=== PATIENT | female | born 1975 | race Caucasian/White ===

== ENCOUNTER 2019-07-27 14:28 | Outpatient (CLI) | payer BC ==
--- NOTE | 2019-07-27 16:12 | MMO ---
Left Breast MAMMO Unilat Diag DDI LT+NADIR. CLINICAL HISTORY: Patient is 44 years old and is seen for diagnostic exam. The patient has no family history of breast cancer. The patient has no personal history of cancer. VIEWS: The views performed were: left craniocaudal with tomosynthesis; left mediolateral oblique with tomosynthesis; and left mediolateral with tomosynthesis. FILMS COMPARED: The present examination has been compared to prior imaging studies performed at [facility] on 02/24/2019 and 03/01/2019, and at [facility] on 07/27/2019. This study has been interpreted with the assistance of computer-aided detection. MAMMOGRAM FINDINGS: The breast is heterogeneously dense, which could obscure a lesion on mammography. There is a stable lobular mass measuring 27 millimeters with associated biopsy clip seen in the left breast at 8 o'clock. IMPRESSION: STABLE MASS IN THE LEFT BREAST IS PROBABLY BENIGN. FOLLOW-UP IN 6 MONTHS IS RECOMMENDED. THE RESULTS OF THIS EXAM WERE SENT TO THE PATIENT. ACR BI-RADS Category 3 - Probably benign finding - short interval follow-up suggested. [facility] will notify the patient of the need for additional imaging services. MAMMOGRAPHY NOTE: 1. A negative mammogram report should not delay a biopsy if a dominant of clinically suspicious mass is present. 2. Approximately 10% to 15% of breast cancers are not detected by mammography. 3. Adenosis and dense breasts may obscure an underlying neoplasm. Reported by: FARAZ SAAVEDRA MD Electonically Signed: [id number]
--- NOTE | 2019-07-27 16:22 | ULT ---
LEFT BREAST ULTRASOUND: 07/27/19 INDICATION: Enlarging left breast mass. FINDINGS: There is a 2.4 x 1.1 x 2.4 cm solid lobulated mass that was previously biopsied in 03/01/19 at [facility]. Pathology results are unavailable but it was reported by the patient as well as no amara on the patient's notes from [facility] that this was a benign breast biopsy lesion. The exac t pathologic diagnosis was not provided. The patient was recommended to have a six month diagnostic left breast evaluation to document stability of the mass lesion by the mammographic department at [facility]. Patient is having more tenderness within the region of the left breast mass and felt th at the left breast mass has slightly enlarged. The lesion today is relatively stable to the comparison ultrasound from 02/24/19 where the lesion rita ured 2.6 x 0.8 x 2.7 cm. When accounting for slight differences in technique, this is likely stable. IMPRESSION: BIRADS 3: Probably Benign Finding Initial Short-Interval Follow-Up Suggested Initial short-term follow up (usually 6-month) examination There is a likely stable well circumscribed solid mass within the left breast 8 o'clock position 1 cm from the nipple that appears similar to a comparison left breast diagnostic ultrasound performed fro [facility] on 02/24/19. This was biopsied on 03/01/19 and was reportedly benign, possib ly reflecting a fibroadenoma. The path report was not submitted with the imaging studies. The patient does report that she was given a benign biopsy result. As a conservative measure, would recommend a follow-up left breast mammogram and ultrasound in six months to document stability. The patient will be due for bilateral screening mammogram at that point in time. Also instructed the patient, if this is symptomatic to her and is of concern that surgical removal would be reasonable. The patient will d iscussed this further with her primary care physician about possible surgical removal. POS: OFF
== END 2019-07-27 14:29 | disposition home or self-care (01) ==
LOC: BICMAMMO 14:28
PROVIDERS: ATTEND Family Medicine
DX: N63.24 Unspecified lump in the left breast, lower inner quadrant (principal)
CPT/HCPCS: G0279